=== PATIENT | female | born 1935 | race Caucasian/White ===

== ENCOUNTER → 2017-06-04 | Outpatient (CLI) | payer MEDICARE ==
[~2017-06-04] MED LIST: ACET325 PO; ALBU90OI6 INH; ALBU90OI61 INH; ASPI81CH PO; BISA10S PR; CETI10; CETI5 PO; CIPR500; CONEST.625 PO; Citrate Of Mag300 ML PO; DELTASONE20 MG PO; DENTA DT; DULO60 PO; DULOXETINE HCL60 MG PO; FAMO20 PO; FLUORIDEX112 GM DT; Flonase 0.05% N16 GM; HYDACE5; IBUP600 PO; LAVAP17G PO; LIDO5TP TOP; LIDO700A20 TOP; LISI20 PO; LOPE2C PO; Lisinopril2.5 MG; METH10 PO; METO50 PO; METO50ER PO; MONT10T; MONT10T PO; Magic Bullet10 MG PR; NUTRISOURCE FIBE4 GM PO; Norco 10-325 T1 EACH PO; ONDA8 PO; PHENA200; PRED10 PO; PROBIOTIC1 EAC1 PO; Prednisone20 MG PO; Senna8.6 M1 PO; Senna8.6 MG PO; TYLENOL325 MG PO; Toprol Xl50 MG PO; Triamterene W/1 EACH PO; UNKNOWN B/P MED; Zofran8 MG PO; [UNRECOGNIZED DRUG - CODE] PO; [UNRECOGNIZED DRUG - OTHER]; [UNRECOGNIZED DRUG - OTHER] TP
[2017-06-05 08:44] LABS: Bilirubin, Urine Neg (Neg); Blood, Urine 2+ (Neg); Glucose Qualitative, Urine Neg (Neg); Ketones, Urine Neg (Neg); Leukocyte Esterase, Urine 3+ (Neg); Nitrite, Urine Pos (Neg); Protein, Urine Neg (Neg); Specific Gravity, Urine 1.015 (1.003-1.022); Urobilinogen, Urine NORM (Normal)
[2017-06-05 08:52] LABS: Appearance, Urine Hazy (Clear); Color, Urine Yellow (P-Yellow)
[2017-06-05 08:56] LABS: Bacteria Mod /hpf; Squamous Epithelial Cells Mod /hpf (Few); White Blood Cells, Urine TNTC /hpf (0-5)
== END ==
LOC: LAB 08:04
PROVIDERS: Nurse Practitioner
DX: N39.0 Urinary tract infection, site not specified (principal)
CPT/HCPCS: 81001; 87077; 87086; 87186

== ENCOUNTER 2017-12-25 12:14 | Emergency (ER) | payer MEDICARE ==
[~2017-12-25] VITALS: Ht 172.7 cm; Wt 81.7 kg
[~2017-12-25 12:14] MED LIST changes: -ACET325 PO; -BISA10S PR; -CETI5 PO; -DELTASONE20 MG PO; -DENTA DT; -DULO60 PO; -FLUORIDEX112 GM DT; -LIDO700A20 TOP; -LISI20 PO; -LOPE2C PO; -MONT10T PO; -ONDA8 PO; -PROBIOTIC1 EAC1 PO; -Senna8.6 MG PO; -TYLENOL325 MG PO; -[UNRECOGNIZED DRUG - OTHER] TP
[2017-12-25] MEDS ORDERED: CETI5 PO (12:52)
[2017-12-25] MEDS ORDERED: DENTA DT (13:23)
[2017-12-25] MEDS ORDERED: PROBIOTIC1 EAC1 PO (13:24)
[2017-12-25] MEDS ORDERED: MONT10T PO (13:24)
[2017-12-25] MEDS ORDERED: FLUORIDEX112 GM DT (13:25)
[2017-12-25] MEDS ORDERED: TYLENOL325 MG PO (13:26)
== END 2017-12-25 13:46 | disposition home or self-care (01) ==
LOC: ER 12:14
DX: M54.2 Cervicalgia (principal); M25.512 Pain in left shoulder; I10 Essential (primary) hypertension; Z88.5 Allergy status to narcotic agent; Z88.2 Allergy status to sulfonamides; Z88.8 Allergy status to other drugs, medicaments and biological substances; Z79.899 Other long term (current) drug therapy; Z79.82 Long term (current) use of aspirin; W18.30XA Fall on same level, unspecified, initial encounter
CPT/HCPCS: 72040; 99283-25

== ENCOUNTER 2018-01-07 06:56 | Day surgery (SDC) | payer MEDICARE ==
[~2018-01-07] VITALS: Ht 172.7 cm; Wt 80.7 kg
[~2018-01-07 06:56] MED LIST changes: +CETI5 PO; +DENTA DT; +FLUORIDEX112 GM DT; +MONT10T PO; +PROBIOTIC1 EAC1 PO; +TYLENOL325 MG PO
== END 2018-01-07 09:25 | disposition home or self-care (01) ==
LOC: ORSCSDS 06:56
PROVIDERS: Ophthalmology
PROC: 08RK3JZ Replacement of Left Lens with Synthetic Substitute, Percutaneous Approach (ICD-10-PCS; principal; 2018-01-07 08:30)
DX: H25.12 Age-related nuclear cataract, left eye (principal); I10 Essential (primary) hypertension; G47.33 Obstructive sleep apnea (adult) (pediatric); M79.7 Fibromyalgia; Z79.899 Other long term (current) drug therapy
CPT/HCPCS: J2001; J2250; J3010; J3301; J7120; V2632

== ENCOUNTER 2018-02-05 05:40 | Observation (INO) | payer MEDICARE ==
[~2018-02-05] VITALS: Ht 167.6 cm; Wt 81.7 kg
[2018-02-05 06:31] LABS: BASOPHILS ABSOLUTE AUTO 0.07 K/mm3 (0.00-0.23); BASOPHILS PERCENT AUTO 1 % (0-2); EOSINOPHILS PERCENT AUTO 4 % (0-6); Hematocrit 40.7 % (33.0-51.0); IMMATURE GRAN ABSOLUTE AUTO 0.03 K/mm3 (0.00-0.10); IMMATURE GRAN PERCENT AUTO 0 % (0-1); LYMPHOCYTES ABSOLUTE AUTO 2.91 K/mm3 (0.84-5.20); LYMPHOCYTES PERCENT AUTO 31 % (21-46); MONOCYTES ABSOLUTE AUTO 0.74 K/mm3 (0.16-1.47); MONOCYTES PERCENT AUTO 8 % (4-13); Mean Corpuscular HGB 27.8 pg (26.0-34.0); Mean Corpuscular HGB Conc 31.9 g/dL (31.5-36.5); Mean Corpuscular Volume 87 fL (80-100); Mean Platelet Volume 9.3 fL (9.1-12.4); NEUTROPHILS ABSOLUTE AUTO 5.25 K/mm3 (1.96-9.15); NEUTROPHILS PERCENT AUTO 56 % (41-73); Platelet Count 286 K/mm3 (150-400); RDW Coefficient Variation 13.5 % (11.7-14.2); RDW Standard Deviation 42.9 fL (35.1-46.3); Red Blood Cell Count 4.68 M/mm3 (3.80-5.20)
[2018-02-05] MEDS ORDERED: DULO60 PO (06:35)
[2018-02-05] MEDS ORDERED: CETI5 PO (06:35)
[2018-02-05] MEDS ORDERED: DENTA DT (06:35)
[2018-02-05] MEDS ORDERED: ASPI81CH PO (06:35)
[2018-02-05] MEDS ORDERED: METO50 PO (06:36)
[2018-02-05] MEDS ORDERED: CONEST.625 PO (06:36)
[2018-02-05] MEDS ORDERED: MONT10T PO (06:36)
[2018-02-05] MEDS ORDERED: LISI20 PO (06:36)
[2018-02-05] MEDS ORDERED: FLUORIDEX112 GM DT (06:37)
[2018-02-05] MEDS ORDERED: PROBIOTIC1 EAC1 PO (06:37)
[2018-02-05] MEDS ORDERED: LIDO700A20 TOP (06:37)
[2018-02-05] MEDS ORDERED: ALBU90OI61 INH (06:38)
[2018-02-05] MEDS ORDERED: LOPE2C PO (06:38)
[2018-02-05] MEDS ORDERED: ONDA8 PO (06:38)
[2018-02-05] MEDS ORDERED: [UNRECOGNIZED DRUG - OTHER] TP (06:39)
[2018-02-05] MEDS ORDERED: Senna8.6 MG PO (06:39)
[2018-02-05 06:45] LABS: Albumin, Blood 3.4 g/dL (3.4-5.0); Albumin/Globulin Ratio 0.9 (0.8-1.8); Bilirubin, Total 0.3 mg/dL (0.1-1.0); Bun/Creatinine Ratio 17.8 (12.0-20.0); Creatinine, Blood 1.07 mg/dL (0.40-1.00); Globulin, Blood 3.6 g/dL (2.2-4.0); Potassium, Blood 4.2 mmol/L (3.5-5.5)
[2018-02-05] MEDS ORDERED: BISA10S PR (11:52)
[2018-02-05] MEDS ORDERED: ACET325 PO (11:52)
[2018-02-05] MEDS ORDERED: IBUP600 PO (11:52)
[2018-02-06 01:52] LABS: Hemoglobin 11.3 g/dL (11.5-16.0); Mean Corpuscular HGB Conc 32.3 g/dL (31.5-36.5); Mean Corpuscular Volume 87 fL (80-100); Mean Platelet Volume 9.4 fL (9.1-12.4); Platelet Count 291 K/mm3 (150-400); RDW Coefficient Variation 13.5 % (11.7-14.2); Red Blood Cell Count 4.04 M/mm3 (3.80-5.20); White Blood Cell Count 8.48 K/mm3 (4.00-11.30)
[2018-02-06 02:19] LABS: Bun/Creatinine Ratio 16.5 (12.0-20.0); Calcium, Blood 8.8 mg/dL (8.5-10.1); Creatinine, Blood 1.15 mg/dL (0.40-1.00); Potassium, Blood 4.4 mmol/L (3.5-5.5)
[2018-02-06] MEDS ORDERED: FAMO20 PO (16:10)
[2018-02-06] MEDS ORDERED: DELTASONE20 MG PO (16:10)
== END 2018-02-06 17:36 | disposition home or self-care (01) ==
LOC: ER 05:40 → ERHOLD 05:41 → PCU 05:41 → ER 05:41 → ERHOLD 05:41 → PCU 08:21 → ERHOLD 08:21 → PCU 08:21 → ERHOLD 11:19 → PCU 02-06 17:36
PROVIDERS: Emergency Medicine; Family Medicine
DX: T78.3XXA Angioneurotic edema, initial encounter (principal); T46.4X5A Adverse effect of angiotensin-converting-enzyme inhibitors, initial encounter; I10 Essential (primary) hypertension; M19.90 Unspecified osteoarthritis, unspecified site; M79.7 Fibromyalgia; G43.909 Migraine, unspecified, not intractable, without status migrainosus; Z79.82 Long term (current) use of aspirin; Z79.899 Other long term (current) drug therapy; Z88.8 Allergy status to other drugs, medicaments and biological substances; Z88.5 Allergy status to narcotic agent
CPT/HCPCS: 36415; 71046; 80048; 80053; 85025; 85027; 93005; 93010; 96372; 96374; 96375; 96376; 99285-25; G0378; J1200; J1650; J2930; J3301; J3490

== ENCOUNTER 2018-05-05 09:58 | Emergency (ER) | payer MEDICARE ==
[~2018-05-05] VITALS: Ht 172.7 cm; Wt 81.7 kg
[~2018-05-05 09:58] MED LIST changes: +ACET325 PO; +BISA10S PR; +DELTASONE20 MG PO; +DULO60 PO; +LIDO700A20 TOP; +LISI20 PO; +LOPE2C PO; +ONDA8 PO; +Senna8.6 MG PO; +[UNRECOGNIZED DRUG - OTHER] TP
[2018-05-05] MEDS ORDERED: Norco 5-325 Ta1 EACH PO (11:10)
[2018-05-05 11:57] LABS: Source, Urine Voided
[2018-05-05 12:09] LABS: Bilirubin, Urine Neg (Neg); Blood, Urine 2+ (Neg); Glucose Qualitative, Urine Neg (Neg); Ketones, Urine Neg (Neg); Leukocyte Esterase, Urine 2+ (Neg); Nitrite, Urine Neg (Neg); Protein, Urine 1+ (Neg); Specific Gravity, Urine 1.015 (1.003-1.022); Urobilinogen, Urine NORM (Normal); pH, Urine 6.5 (5.0-8.0)
[2018-05-05 12:24] LABS: Appearance, Urine Clear (Clear); Color, Urine Yellow (P-Yellow)
[2018-05-05 12:27] LABS: Bacteria Many /hpf; Squamous Epithelial Cells Few /hpf (Few); White Blood Cells, Urine TNTC /hpf (0-5)
== END 2018-05-05 11:50 | disposition home or self-care (01) ==
LOC: ER 09:58
PROVIDERS: Emergency Medicine
DX: M19.011 Primary osteoarthritis, right shoulder (principal); N39.0 Urinary tract infection, site not specified; W06.XXXA Fall from bed, initial encounter; Z88.2 Allergy status to sulfonamides; Z88.8 Allergy status to other drugs, medicaments and biological substances; Z88.5 Allergy status to narcotic agent; Z88.1 Allergy status to other antibiotic agents; Z79.899 Other long term (current) drug therapy; Z79.52 Long term (current) use of systemic steroids; I10 Essential (primary) hypertension
CPT/HCPCS: 73030; 81001; 87086; 96372; 99284-25; J1885

== ENCOUNTER → 2018-07-30 | Outpatient (CLI) | payer MEDICARE ==
[~2018-07-30] MED LIST changes: +Norco 5-325 Ta1 EACH PO
== END | disposition home or self-care (01) ==
LOC: LAB EV 13:35 → LAB SHORT 13:35
DX: L97.909 Non-pressure chronic ulcer of unspecified part of unspecified lower leg with unspecified severity (principal)
CPT/HCPCS: 87070; 87205

== ENCOUNTER → 2018-09-10 | Outpatient (CLI) | payer MEDICARE | END | disposition home or self-care (01) | LOC: LAB SHORT 15:15 → LAB EV 15:15 | DX: L97.909 Non-pressure chronic ulcer of unspecified part of unspecified lower leg with unspecified severity (principal) | CPT/HCPCS: 87070; 87075; 87205 ==

== ENCOUNTER 2018-09-22 12:11 | Day surgery (SDC) | payer MEDICARE, SELFPAY | END 2018-09-22 22:44 | disposition home or self-care (01) | LOC: WOUND 12:11 | DX: L97.311 Non-pressure chronic ulcer of right ankle limited to breakdown of skin (principal); I87.2 Venous insufficiency (chronic) (peripheral); I73.9 Peripheral vascular disease, unspecified; I10 Essential (primary) hypertension; Z88.8 Allergy status to other drugs, medicaments and biological substances; Z88.6 Allergy status to analgesic agent; Z86.73 Personal history of transient ischemic attack (TIA), and cerebral infarction without residual deficits | CPT/HCPCS: G0463 ==

== ENCOUNTER 2018-10-01 10:57 | Day surgery (SDC) | payer MEDICARE, SELFPAY | END 2018-10-01 23:02 | disposition home or self-care (01) | LOC: WOUND 10:57 | DX: L97.319 Non-pressure chronic ulcer of right ankle with unspecified severity (principal); I87.2 Venous insufficiency (chronic) (peripheral); I73.9 Peripheral vascular disease, unspecified; I10 Essential (primary) hypertension; J45.909 Unspecified asthma, uncomplicated | CPT/HCPCS: G0463 ==

== ENCOUNTER 2018-10-15 10:45 | Day surgery (SDC) | payer MEDICARE, SELFPAY | END 2018-10-15 22:52 | disposition home or self-care (01) | LOC: WOUND 10:45 | DX: L97.311 Non-pressure chronic ulcer of right ankle limited to breakdown of skin (principal); I87.2 Venous insufficiency (chronic) (peripheral); I73.9 Peripheral vascular disease, unspecified; G60.9 Hereditary and idiopathic neuropathy, unspecified; I25.10 Atherosclerotic heart disease of native coronary artery without angina pectoris; G31.84 Mild cognitive impairment of uncertain or unknown etiology; Z48.00 Encounter for change or removal of nonsurgical wound dressing | CPT/HCPCS: G0463 ==

== ENCOUNTER → 2018-10-21 | Outpatient (CLI) | payer MEDICARE, SELFPAY ==
[2018-10-21 16:41] LABS: Bilirubin, Urine Neg (Neg); Blood, Urine 1+ (Neg); Glucose Qualitative, Urine Neg (Neg); Ketones, Urine Neg (Neg); Leukocyte Esterase, Urine 3+ (Neg); Nitrite, Urine Neg (Neg); Protein, Urine Neg (Neg); Specific Gravity, Urine 1.015 (1.003-1.022); Urobilinogen, Urine NORM (Normal); pH, Urine 6.5 (5.0-8.0)
[2018-10-21 16:51] LABS: Appearance, Urine Hazy (Clear); Color, Urine Yellow (P-Yellow)
[2018-10-21 16:52] LABS: Bacteria Many /hpf; Squamous Epithelial Cells Few /hpf (Few); White Blood Cells, Urine 25-50 /hpf (0-5)
== END | disposition home or self-care (01) ==
LOC: LAB 16:19 → LAB SHORT 16:19
PROVIDERS: Nurse Practitioner
DX: N39.0 Urinary tract infection, site not specified (principal)
CPT/HCPCS: 81001; 87086

== ENCOUNTER 2018-10-22 00:18 | Day surgery (SDC) | payer MEDICARE, SELFPAY | END 2018-10-22 22:48 | disposition home or self-care (01) | LOC: WOUND 00:18 | DX: L97.311 Non-pressure chronic ulcer of right ankle limited to breakdown of skin (principal); L97.811 Non-pressure chronic ulcer of other part of right lower leg limited to breakdown of skin; I10 Essential (primary) hypertension; I73.9 Peripheral vascular disease, unspecified; I87.2 Venous insufficiency (chronic) (peripheral); D64.9 Anemia, unspecified; J45.909 Unspecified asthma, uncomplicated; F03.90 Unspecified dementia, unspecified severity, without behavioral disturbance, psychotic disturbance, mood disturbance, and anxiety; Z86.73 Personal history of transient ischemic attack (TIA), and cerebral infarction without residual deficits | CPT/HCPCS: 87070; 87075; 87077; 87186; 87205 ==

== ENCOUNTER 2018-10-27 11:17 | Day surgery (SDC) | payer MEDICARE, SELFPAY | END 2018-10-27 22:42 | disposition home or self-care (01) | LOC: WOUND 11:17 | DX: L97.811 Non-pressure chronic ulcer of other part of right lower leg limited to breakdown of skin (principal); I87.2 Venous insufficiency (chronic) (peripheral); I73.9 Peripheral vascular disease, unspecified; G60.9 Hereditary and idiopathic neuropathy, unspecified; I25.10 Atherosclerotic heart disease of native coronary artery without angina pectoris | CPT/HCPCS: G0463 ==

== ENCOUNTER 2018-10-29 00:16 | Day surgery (SDC) | payer MEDICARE, SELFPAY | END 2018-10-29 22:47 | disposition home or self-care (01) | LOC: WOUND 00:16 | DX: L97.811 Non-pressure chronic ulcer of other part of right lower leg limited to breakdown of skin (principal); I73.9 Peripheral vascular disease, unspecified; I87.2 Venous insufficiency (chronic) (peripheral) | CPT/HCPCS: G0463 ==

== ENCOUNTER 2018-11-05 00:07 | Day surgery (SDC) | payer MEDICARE, SELFPAY | END 2018-11-05 22:41 | disposition home or self-care (01) | LOC: WOUND 00:07 | DX: L97.811 Non-pressure chronic ulcer of other part of right lower leg limited to breakdown of skin (principal); I87.2 Venous insufficiency (chronic) (peripheral); I73.9 Peripheral vascular disease, unspecified | CPT/HCPCS: G0463 ==

== ENCOUNTER 2018-11-12 10:57 | Day surgery (SDC) | payer MEDICARE, SELFPAY | END 2018-11-12 22:53 | disposition home or self-care (01) | LOC: WOUND 10:57 | DX: L97.811 Non-pressure chronic ulcer of other part of right lower leg limited to breakdown of skin (principal); I87.2 Venous insufficiency (chronic) (peripheral); I73.9 Peripheral vascular disease, unspecified; Z86.73 Personal history of transient ischemic attack (TIA), and cerebral infarction without residual deficits | CPT/HCPCS: G0463 ==

== ENCOUNTER 2018-11-19 00:34 | Day surgery (SDC) | payer MEDICARE, OTHER | END 2018-11-19 23:09 | disposition home or self-care (01) | LOC: WOUND 00:34 | DX: L97.311 Non-pressure chronic ulcer of right ankle limited to breakdown of skin (principal); I87.2 Venous insufficiency (chronic) (peripheral); I73.9 Peripheral vascular disease, unspecified | CPT/HCPCS: G0463 ==

== ENCOUNTER → 2018-12-21 | Outpatient (CLI) | payer MEDICARE, OTHER ==
[2018-12-21 15:46] LABS: Bilirubin, Urine Neg (Neg); Blood, Urine Neg (Neg); Glucose Qualitative, Urine Neg (Neg); Ketones, Urine Neg (Neg); Leukocyte Esterase, Urine Neg (Neg); Nitrite, Urine Neg (Neg); Protein, Urine Neg (Neg); Specific Gravity, Urine 1.015 (1.003-1.022); Urobilinogen, Urine NORM (Normal)
[2018-12-21 15:53] LABS: Appearance, Urine Clear (Clear); Color, Urine Yellow (P-Yellow)
== END ==
LOC: LAB SHORT 15:20 → LAB 15:20
PROVIDERS: Nurse Practitioner
DX: N39.0 Urinary tract infection, site not specified (principal)
CPT/HCPCS: 81003; 87086

== ENCOUNTER → 2019-03-27 | Outpatient (CLI) | payer MEDICARE, OTHER ==
[2019-03-27 13:06] LABS: Bilirubin, Urine Neg (Neg); Blood, Urine 2+ (Neg); Glucose Qualitative, Urine Neg (Neg); Ketones, Urine Neg (Neg); Leukocyte Esterase, Urine 3+ (Neg); Nitrite, Urine Neg (Neg); Protein, Urine 3+ (Neg); Specific Gravity, Urine 1.015 (1.003-1.022); Urobilinogen, Urine NORM (Normal)
[2019-03-27 13:15] LABS: Appearance, Urine Cloudy (Clear); Color, Urine Yellow (P-Yellow)
[2019-03-27 13:17] LABS: Bacteria Many /hpf; Squamous Epithelial Cells Few /hpf (Few); White Blood Cells, Urine 50-100 /hpf (0-5)
== END | disposition home or self-care (01) ==
LOC: LAB SHORT 11:00 → LAB 11:00
PROVIDERS: Nurse Practitioner
DX: N39.0 Urinary tract infection, site not specified (principal)
CPT/HCPCS: 81001; 87086

== ENCOUNTER → 2019-08-19 | Outpatient (CLI) | payer MEDICARE, OTHER ==
[2019-08-19 12:46] LABS: Bilirubin, Urine Neg (Neg); Blood, Urine Neg (Neg); Glucose Qualitative, Urine Neg (Neg); Ketones, Urine Neg (Neg); Leukocyte Esterase, Urine Neg (Neg); Nitrite, Urine Neg (Neg); Protein, Urine Neg (Neg); Urobilinogen, Urine NORM (Normal); pH, Urine 6.5 (5.0-8.0)
[2019-08-19 12:56] LABS: Appearance, Urine Clear (Clear); Color, Urine Yellow (P-Yellow)
== END | disposition home or self-care (01) ==
LOC: LAB SHORT 11:50 → LAB 11:50
PROVIDERS: Nurse Practitioner
DX: N39.0 Urinary tract infection, site not specified (principal)
CPT/HCPCS: 81003; 87086

== ENCOUNTER → 2020-01-06 | Outpatient (CLI) | payer MEDICARE, OTHER ==
[2020-01-06 12:15] LABS: Source, Urine Clean Catch
[2020-01-06 13:19] LABS: Appearance, Urine Hazy (Clear); Bilirubin, Urine Neg (Neg); Blood, Urine Neg (Neg); Color, Urine Yellow (P-Yellow); Glucose Qualitative, Urine Neg (Neg); Ketones, Urine Neg (Neg); Leukocyte Esterase, Urine 1+ (Neg); Nitrite, Urine Neg (Neg); Protein, Urine Neg (Neg); Urobilinogen, Urine NORM (Normal)
[2020-01-06 13:40] LABS: Bacteria Many /hpf; Red Blood Cells, Urine 0-2 /hpf (0-2); Squamous Epithelial Cells Few /hpf (Few)
== END | disposition home or self-care (01) ==
LOC: LAB SHORT 12:14 → LAB 12:14
PROVIDERS: Nurse Practitioner
DX: N39.0 Urinary tract infection, site not specified (principal)
CPT/HCPCS: 81001; 87086

== ENCOUNTER → 2020-03-27 | Outpatient (CLI) | payer MEDICARE ==
[~2020-03-27] MED LIST changes: +DONE5 PO
[2020-03-27 10:21] LABS: Source, Urine Clean Catch
[2020-03-27 12:52] LABS: Appearance, Urine Hazy (Clear); Bilirubin, Urine Neg (Neg); Blood, Urine 2+ (Neg); Color, Urine Yellow (P-Yellow); Glucose Qualitative, Urine Neg (Neg); Ketones, Urine Neg (Neg); Leukocyte Esterase, Urine 3+ (Neg); Nitrite, Urine Neg (Neg); Protein, Urine Neg (Neg); Urobilinogen, Urine NORM (Normal)
[2020-03-27 13:13] LABS: Bacteria Many /hpf; Squamous Epithelial Cells Few /hpf (Few); White Blood Cells, Urine TNTC /hpf (0-5)
== END ==
LOC: LAB 07:30 → LAB SHORT 07:30
PROVIDERS: Nurse Practitioner
DX: N39.0 Urinary tract infection, site not specified (principal)
CPT/HCPCS: 81001; 87077; 87086; 87147; 87186

== ENCOUNTER 2020-06-03 11:16 | Emergency (ER) | payer MEDICARE ==
[~2020-06-03] VITALS: Ht 172.7 cm; Wt 95.2 kg
[~2020-06-03 11:16] MED LIST changes: -DONE5 PO
[2020-06-03] MEDS ORDERED: DONE5 PO (11:40)
[2020-06-03] MEDS ORDERED: CONEST.625 PO (11:41)
== END 2020-06-03 13:00 | disposition home or self-care (01) ==
LOC: ER 11:16
DX: S09.90XA Unspecified injury of head, initial encounter (principal); I10 Essential (primary) hypertension; Z79.52 Long term (current) use of systemic steroids; W05.0XXA Fall from non-moving wheelchair, initial encounter
CPT/HCPCS: 99283